=== PATIENT | male | born 1995 | race Caucasian/White ===

== ENCOUNTER 2020-12-06 11:59 | Inpatient (IN) ==
[2020-12-06 12:41] LABS: Basophils # 0.1 K/mcL (0.0-0.2); Basophils % 0.6 %; Eosinophils # 0.2 K/mcL (0.0-0.6); Eosinophils % 2.3 %; Hematocrit 47.6 % (37.5-50.1); Hemoglobin 16.4 g/dL (12.9-16.9); Immature Granulocytes % 0.2 % (0-4); Lymphocytes # 2.1 K/mcL (0.6-4.6); Lymphocytes % 25.1 %; Mean Corpuscular HGB Conc 34.5 g/dL (31.6-35.5); Mean Corpuscular Hemoglobin 29.5 pg (28.0-33.3); Mean Corpuscular Volume 85.6 fL (83.0-100.0); Mean Platelet Volume 9.1 fL (9.4-12.4); Monocytes # 0.6 K/mcL (0.0-1.3); Neutrophils # 5.3 K/mcL (1.6-8.9); Platelet Count 363 K/mcL (140-400); Red Blood Count 5.56 M/mcL (4.19-5.50); Red Cell Distribution Width 12.3 % (11.5-14.5); Segmented Neutrophils % 64.8 %; White Blood Count 8.2 K/mcL (4.3-11.1)
[2020-12-06 12:44] LABS: Estimated Average Glucose 100 mg/dl; Hemoglobin A1C 5.1 %
[2020-12-06 13:00] LABS: Bacteria,Urine Few per hpf (None-Few); Bilirubin,Urine Negative (Negative); Blood,Urine Negative (Negative); Clarity,Urine Clear (Clear); Color,Urine Yellow (Yellow); Glucose,Urine (UA) Normal (Normal); Ketones,Urine Negative (Negative); Leukocyte Esterase,Urine Negative (Negative); Mucus,Urine Few per lpf (None-Few); Nitrite,Urine Negative (Negative); PH,Urine 6.5 pH Units (5.0-8.0); Protein,Urine 30 mg/dL (Neg-Trace); RBC,Urine 0-3 per hpf (0-3); Specific Gravity,Urine > 1.030 (1.010-1.025); Squamous Epithelial Cell,Urine Few per hpf (None-Few); Urobilinogen,Urine Normal (Normal); WBC,Urine 0-3 per hpf (0-3)
[2020-12-06 13:07] LABS: Acetaminophen < 10 mcg/mL (10-20); BUN/Creatinine Ratio 14 (6-26); Blood Urea Nitrogen 12 mg/dL (6-20); Calcium 9.6 mg/dL (8.6-10.3); Carbon Dioxide 26 mEq/L (23-29); Chloride 104 mEq/L (98-107); Chol/HDL Ratio 4.3 (0-4.9); Cholesterol 193 mg/dL (< 200); Ethanol < 10 mg/dL (Less than 10); Glucose 109 mg/dL (70-105); HDL Cholesterol 45 mg/dL (40-59); LDL Cholesterol,Calculated 120 mg/dL (< 100); Osmolality,Calculated 288 (280-300); Potassium 3.7 mEq/L (3.5-5.1); Salicylate < 2.5 mg/dL (15.0-30.0); Sodium 139 mEq/L (136-145); Triglycerides 142 mg/dL (< 150); eGFR For African Americans > 60 (> 60); eGFR For Non-African Americans > 60 (> 60)
[2020-12-06 13:44] LABS: Amphetamine Screen,Urine Negative ng/mL (Cutoff=1000); Barbiturate Screen,Urine Negative ng/mL (Cutoff=200); Benzodiazepines Screen,Urine Negative ng/mL (Cutoff=200); Cannabinoid Screen,Urine Positive ng/mL (Cutoff = 50); Cocaine Screen,Urine Negative ng/mL (Cutoff= 300); Opiate Screen,Urine Negative ng/mL (Cutoff=300); Phencyclidine Screen,Urine Negative ng/mL (Cutoff=25)
[2020-12-06] MEDS: Nicotine 14 MG PATCH.TD24 TD SCH (18:50)
[2020-12-06] MEDS ORDERED: Mag Hydrox/Al Hydrox/Simeth 30 ML UDC PO STA (23:42)
[2020-12-07] MEDS: Nicotine 14 MG PATCH.TD24 TD SCH (11:16)
[2020-12-07] MEDS ORDERED: Ibuprofen 400 MG TABLET PO PRN (16:10)
[2020-12-07] MEDS ORDERED: hydrOXYzine pamoate 25 MG CAPSULE PO PRN (16:10)
[2020-12-07] MEDS: traZODone 50 MG TABLET PO PRN (22:12)
[2020-12-08] MEDS: Nicotine 14 MG PATCH.TD24 TD SCH (09:27)
[2020-12-08] MEDS: FLUoxetine HCl 10 MG CAPSULE PO SCH (15:02)
[2020-12-08] MEDS: Benzocaine 20% 12 APPL GEL..GRAM. TP PRN ×2 (15:02→21:06)
[2020-12-08] MEDS: traZODone 50 MG TABLET PO PRN (21:35)
[2020-12-09] MEDS: Nicotine 14 MG PATCH.TD24 TD SCH (09:29)
[2020-12-09] MEDS: FLUoxetine HCl 10 MG CAPSULE PO SCH (09:29)
[2020-12-09 09:35] VITALS: BP 104/69
[2020-12-09] MEDS: Benzocaine 20% 12 APPL GEL..GRAM. TP PRN (11:41)
== END 2020-12-09 17:03 | disposition home or self-care (01) | DRG 754 ==
LOC: EMEROOARM 11:59 → 1ANU 12-07 15:31
PROVIDERS: ADMIT Psychiatry & Neurology Psychiatry; ATTEND Psychiatry & Neurology Psychiatry